=== PATIENT | female | born 2000 | race Two or more races ===

== ENCOUNTER 2022-05-29 22:37 | Inpatient (IN) | payer SELFPAY ==
[2022-05-29] MEDS ORDERED: Tranexamic Acid 1,000 MG in Sodium Chloride 0.9% 100 ML IV PRN (23:45)
[2022-05-29] MEDS ORDERED: Sodium Chloride 0.9% 2.5 ML Syringe FLUSH PRN (23:45)
[2022-05-29] MEDS ORDERED: Lidocaine 1% 50 ML MDV INJECT PRN (23:45)
[2022-05-29] MEDS ORDERED: Butorphanol 1 MG/ML SDV IVPUSH PRN (23:45)
[2022-05-29] MEDS ORDERED: Carboprost Tromethamine 250 MCG/1 ML Amp IM PRN (23:45)
[2022-05-29] MEDS ORDERED: Sodium Chloride 0.9% 10 ML Syringe FLUSH PRN (23:45)
[2022-05-29] MEDS ORDERED: Oxytocin/0.9 % Sodium Chloride 30 UNIT/500 ML BAG IV SCH (23:45)
[2022-05-29] MEDS ORDERED: Water For Irrigation,Sterile 1,000 ML Container IRR PRN (23:45)
[2022-05-29] MEDS ORDERED: Sodium Chloride 0.9% 20 ML SDV IV PRN (23:45)
[2022-05-29] MEDS ORDERED: Methylergonovine 0.2 MG/1 ML Amp IM PRN (23:45)
[2022-05-29] MEDS ORDERED: Misoprostol 200 MCG Tab PO PRN (23:45)
[2022-05-29] MEDS ORDERED: Ondansetron 4 MG/2 ML SDV IVPUSH PRN (23:45)
[2022-05-30] MEDS ORDERED: Ampicillin 2 GM in Sodium Chloride 0.9% 100 ML IV ONE ×2
[2022-05-30] MEDS: Lactated Ringers 1,000 ML IV SCH ×3 (00:15→09:51)
[2022-05-30] MEDS ORDERED: Terbutaline 1 MG/ML SDV SUBCUT PRN ×2 (00:24→01:15)
[2022-05-30] MEDS ORDERED: Oxytocin/0.9 % Sodium Chloride 30 UNIT/500 ML BAG IV SCH ×2 (00:30→01:15)
[2022-05-30] MEDS ORDERED: ePHEDrine 50 MG/ML SDV IVPUSH PRN ×2 (03:07)
[2022-05-30] MEDS ORDERED: Phenylephrine HCl In 0.9% NaCl 1 MG/10 ML Vial IVPUSH PRN ×2 (03:07→06:41)
[2022-05-30] MEDS ORDERED: Ropivacaine HCl/PF 400 MG in Premix Bag 1 BAG EPIDUR SCH (03:15)
[2022-05-30] MEDS ORDERED: Phenylephrine HCl In 0.9% NaCl 1 MG/10 ML Vial IVPUSH SCH (03:15)
[2022-05-30] MEDS: Ampicillin 1 GM in Sodium Chloride 0.9% 50 ML IV SCH ×2 (04:06→08:24)
[2022-05-30 05:23] LABS: C. TRACHOMATIS BY PCR NOT DETECTED; N. GONORRHOEAE BY PCR NOT DETECTED
[2022-05-30] MEDS ORDERED: Ropivacaine/PF 400 MG/200 ML PCA ONE (06:20)
[2022-05-30] MEDS ORDERED: Dexmedetomidine 200 MCG/2 ML SDV ONE (07:04)
[2022-05-30] MEDS ORDERED: ceFAZolin 2 GM in Sodium Chloride 0.9% 50 ML IV ONE (12:44)
[2022-05-30] MEDS ORDERED: Bisacodyl 10 MG Supp RECTAL PRN (12:46)
[2022-05-30] MEDS ORDERED: Acetaminophen 500 MG Tab PO PRN ×2 (12:46)
[2022-05-30] MEDS ORDERED: Ibuprofen 400 MG Tab PO PRN (12:46)
[2022-05-30] MEDS ORDERED: Benzocaine/Menthol 20%-0.5% Spray 78 GM Cannister TOP PRN (12:46)
[2022-05-30] MEDS ORDERED: Docusate Sodium 100 MG Cap PO PRN (12:46)
[2022-05-30] MEDS ORDERED: Witch Hazel Medicated Pads 40/Jar TOP PRN (12:46)
[2022-05-30] MEDS ORDERED: Lanolin 100% Cream 7 GM Tube TOP PRN (12:46)
[2022-05-30] MEDS ORDERED: oxyCODONE 5 MG Tab PO PRN (12:46)
[2022-05-30] MEDS ORDERED: Ibuprofen 800 MG Tab PO PRN (12:46)
== END 2022-06-01 10:55 | disposition home or self-care (01) | DRG 805 ==
LOC: MW.OB 22:37 → MW.OBCHECK 22:37 → MW.OB 23:45 → OBSVTOIN 05-30 12:46 → MW.OB 05-30 22:49
PROVIDERS: ADMIT Obstetrics & Gynecology; ATTEND Obstetrics & Gynecology
PROC: 10E0XZZ Delivery of Products of Conception, External Approach (ICD-10-PCS; principal; 2022-05-30)
PROC: 0HQ9XZZ Repair Perineum Skin, External Approach (ICD-10-PCS; 2022-05-30)
PROC: 3E0R3BZ Introduction of Anesthetic Agent into Spinal Canal, Percutaneous Approach (ICD-10-PCS; 2022-05-30)
PROC: 00HU33Z Insertion of Infusion Device into Spinal Canal, Percutaneous Approach (ICD-10-PCS; 2022-05-30)
PROC: 8E0ZXY6 Isolation (ICD-10-PCS; 2022-05-30)
DX: O42.92 Full-term premature rupture of membranes, unspecified as to length of time between rupture and onset of labor (principal); Z3A.40 40 weeks gestation of pregnancy; Z37.0 Single live birth; U07.1 COVID-19; O98.52 Other viral diseases complicating childbirth; O48.0 Post-term pregnancy; O99.824 Streptococcus B carrier state complicating childbirth; O70.0 First degree perineal laceration during delivery
CPT/HCPCS: 01967; 36415; 51701; 51702; 59025; 59409; 80305-QW; 82803; 84112; 85027; 86592; 86803; 86850; 86900; 86901; 87491; 87591; A9270-GY; J0290; J0595; J0690; J2210; J2590; J2795; J3490; J7120; U0002